=== PATIENT | male | born 1990 | race Caucasian/White ===

== ENCOUNTER 2017-04-29 20:39 | Emergency (ER) | payer BC ==
[~2017-04-29] VITALS: Ht 177.8 cm; Wt 154.2 kg
[~2017-04-29 20:39] MED LIST: AUGMENTIN PO; CLINDAMYCIN HC300 MG PO; NO MEDICATIONS
== END 2017-04-29 22:09 | disposition home or self-care (01) ==
LOC: SED 20:39
DX: H66.91 Otitis media, unspecified, right ear (principal); F17.210 Nicotine dependence, cigarettes, uncomplicated; Z88.1 Allergy status to other antibiotic agents
CPT/HCPCS: 87651; 99283